=== PATIENT | male | born 1975 | race Caucasian/White ===

== ENCOUNTER 2022-01-17 23:20 | Emergency (ER) | payer MEDICAID ==
[~2022-01-17] VITALS: Ht 167.6 cm; Wt 75.0 kg
[2022-01-18] MEDS ORDERED: DIAZEPAM 5 MG/ML 2ML CPJ IM ONE
[2022-01-18] MEDS ORDERED: DIAZEPAM 5 MG/ML 2ML CPJ IM SCH (04:15)
[2022-01-18] MEDS ORDERED: PREDNISONE 20MG TABLET PO ONE (05:00)
[2022-01-18] MEDS ORDERED: P20 MT (05:46)
[2022-01-18] MEDS ORDERED: HYDR-4001 MT (05:46)
[2022-01-18] MEDS ORDERED: METH-653 MT (05:46)
[2022-01-18] MEDS ORDERED: HYDROCODONE/ACETAMINOPHEN 5/325MG TABLET PO ONE (06:00)
[2022-01-18 06:18] VITALS: BP 142/79
== END 2022-01-18 06:30 | disposition home or self-care (01) ==
LOC: ER 23:20
DX: G89.29 Other chronic pain (principal); M54.50 Low back pain, unspecified; Z88.0 Allergy status to penicillin
CPT/HCPCS: 96372; 99283; J7512

== ENCOUNTER 2022-02-22 20:47 | Emergency (ER) | payer MEDICAID, OTHER ==
[~2022-02-22] VITALS: Ht 170.2 cm; Wt 70.9 kg
[~2022-02-22 20:47] MED LIST: HYDR-4001 MT; METH-653 MT; P20 MT
[2022-02-22 23:49] LABS: BASOPHILS % 0.9 % (0.0-2.0); EOSINOPHILS % 6.7 % (0.0-5.0); HEMATOCRIT. 39.1 % (42.0-52.0); HEMOGLOBIN. 13.5 g/dL (14.0-18.0); LYMPHOCYTES % 30.8 % (20.0-50.0); MEAN CORPUSCULAR HEMOGLOBIN 30.7 pg (28.0-32.0); MONOCYTES % 5.4 % (2.0-8.0); NEUTROPHILS % 56.2 % (40.0-76.0); PLATELET 305 x1000/uL (130-400); RED BLOOD CELL COUNT 4.39 mill/uL (4.7-6.1); RED CELL DISTRIBUTION WIDTH 13.3 % (11.6-14.6)
[2022-02-22 23:52] LABS: CHLORIDE 109 mEq/L (98-107)
[2022-02-22 23:56] LABS: ETHANOL BLOOD < 10 mg/dL
[2022-02-23 02:59] LABS: CLARITY URINE CLEAR (CLEAR); COLOR URINE YELLOW (YELLOW); KETONES URINE TRACE (NEGATIVE); LEUKOCYTE ESTERASE URINE NEGATIVE (NEGATIVE); NITRITE URINE NEGATIVE (NEGATIVE); OCCULT BLOOD URINE NEGATIVE (NEGATIVE); PH URINE 5.5 (4.5-8.0); PROTEIN URINE NEGATIVE (NEGATIVE); SPECIFIC GRAVITY URINE 1.026 (1.005-1.030)
[2022-02-23 03:12] LABS: *AMPHETAMINES SCREEN URINE NEGATIVE (NEGATIVE); *BARBITURATES SCREEN URINE NEGATIVE (NEGATIVE); *BENZODIAZEPINES SCREEN URINE NEGATIVE (NEGATIVE); *COCAINE SCREEN URINE NEGATIVE (NEGATIVE); CANNABINOID URINE SCREEN NEGATIVE (NEGATIVE); METHADONE URINE SCREEN NEGATIVE (NEGATIVE); OPIATES URINE SCREEN NEGATIVE (NEGATIVE); PHENCYCLIDINE URINE SCREEN NEGATIVE (NEGATIVE)
[2022-02-23] MEDS ORDERED: PAROXETINE HCL 10MG TABLET PO SCH (09:30)
[2022-02-24 21:16] VITALS: BP 113/77
== END 2022-02-24 21:26 ==
LOC: ER 20:47
DX: F33.1 Major depressive disorder, recurrent, moderate (principal); R45.851 Suicidal ideations; R44.0 Auditory hallucinations; F43.12 Post-traumatic stress disorder, chronic; Z20.822 Contact with and (suspected) exposure to COVID-19; Z75.1 Person awaiting admission to adequate facility elsewhere
CPT/HCPCS: 36415; 80048; 80305; 80307; 80320; 80329; 81003; 85025; 99285; C9803; U0003; U0005; G0480